=== PATIENT | female | born 1995 | race African-American/Black ===

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

== ENCOUNTER 2017-01-01 23:11 | Emergency (ER) | payer MEDICAID ==
[2017-01-01] MEDS ORDERED: Sodium Chloride 0.9% 1,000 ML IV ONE (23:50)
[2017-01-02 00:15] LABS: CHLORIDE,CL 104 mmol/L (98-110); SODIUM,NA 138 mmol/L (136-146)
[2017-01-02] MEDS ORDERED: Ketorolac 30 MG/ML SDV IVPUSH ONE (00:40)
[2017-01-02] MEDS ORDERED: Simethicone 80 MG Tab.Chew PO ONE (01:25)
--- NOTE | 2017-01-02 01:25 | EDM.PDOC ---
ED HPI GENERAL MEDICAL PROBLEM - General Chief Complaint: Abdominal Pain Stated Complaint: ABDOMINAL PAIN Time Seen by Provider: 01/02/17 01:24 Source of Information: Reports: Patient - History of Present Illness INITIAL COMMENTS - FREE TEXT/NARRATIVE: HISTORY AND PHYSICAL: History of present illness: []Patient presents with left upper quadrant pain since yesterday she rates 4 out of 10 nonradiating she denies any injury or trauma no fever nausea vomiting chills sweats chest pain shortness breath headache dizziness or palpitation denies urinary symptoms last bowel movement was yesterday somewhat on the constipated side Last menstrual period ended yesterday Denies chronic illness or disease Review of systems: As per history of present illness and below otherwise all systems reviewed and negative. Past medical history: As per history of present illness and as reviewed below otherwise noncontributory. Surgical history: As per history of present illness and as reviewed below otherwise noncontributory. Social history: No reported history of drug or alcohol abuse. Family history: As per history of present illness and as reviewed below otherwise noncontributory. General patient elicits no pain behavior she is in absolutely no distress whatsoever Physical exam: HEENT: Atraumatic, normocephalic, pupils reactive, negative for conjunctival pallor or scleral icterus, mucous membranes moist, throat clear, neck supple, nontender, trachea midline. Lungs: Clear to auscultation, breath sounds equal bilaterally, chest nontender. Heart: S1S2, regular, negative for clicks, rubs, or JVD. Abdomen: Soft, nondistended, mild tenderness left upper quadrant no guarding or rebound lower quadrants are negative for tenderness again no guarding or rebound Negative for masses or hepatosplenomegaly. Negative for costovertebral tenderness. Pelvis: Stable nontender. Genitourinary: Deferred. Rectal: Deferred. Extremities: Atraumatic, negative for cords or calf pain. Neurovascular unremarkable. Neuro: Awake, alert, oriented. Cranial nerves II through XII unremarkable. Cerebellum unremarkable. Motor and sensory unremarkable throughout. Exam nonfocal. Diagnostics: []Lab as below CBC CMP UA hCG Flat and upright abdomen Therapeutics: []Gas-X Toradol 30 mg IV Recommend MiraLAX and Gas-X [id number] Impression: []Abdominal pain Stool and nonspecific bowel gas pattern x-ray will follow radiology Definitive disposition and diagnosis as appropriate pending reevaluation and review of above. Left Upper Abdomen Pain Score (Numeric/FACES): 9 - Related Data Allergies Allergy/AdvReac Type Severity Reaction Status Date / Time No Known Allergies Allergy Verified 01/01/17 23:27 Home Meds: Home Meds . [No Known Home Meds] 12/08/16 [History] Past Medical History - Past Health History Medical/Surgical History: Denies Medical/Surgical History HEENT History: Reports: None Cardiovascular History: Reports: None Respiratory History: Reports: None Gastrointestinal History: Reports: None Genitourinary History: Reports: None RHEOLOGIST History: Reports: Neurological History: Reports: None Psychiatric History: Reports: None Dermatologic History: Reports: None - Infectious Disease History Infectious Disease History: Reports: None - Past Surgical History HEENT Surgical History: Reports: None Cardiovascular Surgical History: Reports: None Respiratory Surgical History: Reports: None GI Surgical History: Reports: None Female Surgical History: Reports: Section Social & Family History - Family History Family Medical History: Noncontributory - Tobacco Use Smoking Status *Q: Never Smoker Second Hand Smoke Exposure: No - Caffeine Use Caffeine Use: Reports: None - Recreational Drug Use Recreational Drug Use: No ED ROS GENERAL - Review of Systems Review Of Systems: ROS reveals no pertinent complaints other than HPI. ED EXAM, GENERAL - Physical Exam Exam: See Below Course - Vital Signs Last Recorded V/S: Last Vital Signs Temp 35.8 C 01/01/17 23:24 Pulse 77 01/02/17 00:20 Resp 18 01/02/17 00:20 BP 102/57 L 01/02/17 00:20 Pulse Ox 99 01/02/17 00:20 - Orders/Labs/Meds Orders: Active Orders 24 hr Category Date Time Status Heart Tones [RC] ASDIRECTED Care 01/01/17 23:51 Inactive Abdomen 2V AP Flat Upright [CR] Stat Exams 01/02/17 00:40 Taken Simethicone Med 01/02/17 01:25 Once 160 mg PO ONETIME ONE Labs: Laboratory Tests 01/01/17 01/01/17 01/01/17 Range/Units 23:37 23:52 23:52 WBC 9.60 (4.0-11.0) K/uL RBC 4.53 (4.30-5.90) M/uL Hgb 11.9 L (12.0-16.0) g/dL Hct 37.5 (36.0-46.0) % MCV 82.8 (80.0-98.0) fL MCH 26.3 L (27.0-32.0) pg MCHC 31.7 (31.0-37.0) g/dL RDW Std Deviation 39.3 (28.0-62.0) fl RDW Coeff of Yobani 13 (11.0-15.0) % Plt Count 168 (150-400) K/uL MPV 10.80 (7.40-12.00) fL Neut % (Auto) 50.0 (48.0-80.0) % Lymph % (Auto) 40.7 H (16.0-40.0) % [place] % (Auto) 8.1 (0.0-15.0) % Eos % (Auto) 1.0 (0.0-7.0) % Baso % (Auto) 0.2 (0.0-1.5) % Neut # (Auto) 4.8 (1.4-5.7) K/uL Lymph # (Auto) 3.9 H (0.6-2.4) K/uL [place] # (Auto) 0.8 (0.0-0.8) K/uL Eos # (Auto) 0.1 (0.0-0.7) K/uL Baso # (Auto) 0.0 (0.0-0.1) K/uL Nucleated RBC % 0.0 /100WBC Nucleated RBCs # 0 K/uL Sodium 138 (136-146) mmol/L Potassium 3.8 (3.5-5.1) mmol/L Chloride 104 (98-110) mmol/L Carbon Dioxide 24 (21-31) mmol/L BUN 20 (6.0-23.0) mg/dL Creatinine 0.9 (0.6-1.5) mg/dL Est Cr Clr Drug Dosing 83.17 mL/min Estimated GFR (MDRD) > 60.0 ml/min Glucose 113 H (60-110) mg/dL Calcium 9.6 (8.8-10.8) mg/dL Total Bilirubin 0.1 (0.1-1.5) mg/dL AST 16 (5-40) IU/L ALT 14 (8-54) IU/L Alkaline Phosphatase 98 (40-150) Total Protein 7.5 (6.0-8.0) g/dL Albumin 4.0 (3.5-5.0) g/dL Globulin 3.5 (2.0-3.5) g/dL Albumin/Globulin Ratio 1.1 L (1.3-2.8) Amylase 62 (10-90) U/L Lipase 62 (7-80) U/L HCG, Quant mIU/mL Urine Color YELLOW Urine Appearance CLEAR Urine pH 6.0 (5.0-8.0) Ur Specific [place] 1.025 (1.001-1.035) Urine Protein NEGATIVE (NEGATIVE) mg/dL Urine Glucose (UA) NEGATIVE (NEGATIVE) mg/dL Urine Ketones NEGATIVE (NEGATIVE) mg/dL Urine Occult Blood SMALL H (NEGATIVE) Urine Nitrite NEGATIVE (NEGATIVE) Urine Bilirubin NEGATIVE (NEGATIVE) Urine Urobilinogen 0.2 (<2.0) EU/dL Ur Leukocyte Esterase NEGATIVE (NEGATIVE) Urine RBC 0-1 (0-2/HPF) Urine WBC 0-1 (0-5/HPF) Ur Epithelial Cells FEW (NONE-FEW) Urine Bacteria FEW (NEGATIVE) Blood Type 01/01/17 01/01/17 Range/Units 23:52 23:52 WBC (4.0-11.0) K/uL RBC (4.30-5.90) M/uL Hgb (12.0-16.0) g/dL Hct (36.0-46.0) % MCV (80.0-98.0) fL MCH (27.0-32.0) pg MCHC (31.0-37.0) g/dL RDW Std Deviation (28.0-62.0) fl RDW Coeff of Yobani (11.0-15.0) % Plt Count (150-400) K/uL MPV (7.40-12.00) fL Neut % (Auto) (48.0-80.0) % Lymph % (Auto) (16.0-40.0) % [place] % (Auto) (0.0-15.0) % Eos % (Auto) (0.0-7.0) % Baso % (Auto) (0.0-1.5) % Neut # (Auto) (1.4-5.7) K/uL Lymph # (Auto) (0.6-2.4) K/uL [place] # (Auto) (0.0-0.8) K/uL Eos # (Auto) (0.0-0.7) K/uL Baso # (Auto) (0.0-0.1) K/uL Nucleated RBC % /100WBC Nucleated RBCs # K/uL Sodium (136-146) mmol/L Potassium (3.5-5.1) mmol/L Chloride (98-110) mmol/L Carbon Dioxide (21-31) mmol/L BUN (6.0-23.0) mg/dL Creatinine (0.6-1.5) mg/dL Est Cr Clr Drug Dosing mL/min Estimated GFR (MDRD) ml/min Glucose (60-110) mg/dL Calcium (8.8-10.8) mg/dL Total Bilirubin (0.1-1.5) mg/dL AST (5-40) IU/L ALT (8-54) IU/L Alkaline Phosphatase (40-150) Total Protein (6.0-8.0) g/dL Albumin (3.5-5.0) g/dL Globulin (2.0-3.5) g/dL Albumin/Globulin Ratio (1.3-2.8) Amylase (10-90) U/L Lipase (7-80) U/L HCG, Quant 4.0 mIU/mL Urine Color Urine Appearance Urine pH (5.0-8.0) Ur Specific [place] (1.001-1.035) Urine Protein (NEGATIVE) mg/dL Urine Glucose (UA) (NEGATIVE) mg/dL Urine Ketones (NEGATIVE) mg/dL Urine Occult Blood (NEGATIVE) Urine Nitrite (NEGATIVE) Urine Bilirubin (NEGATIVE) Urine Urobilinogen (<2.0) EU/dL Ur Leukocyte Esterase (NEGATIVE) Urine RBC (0-2/HPF) Urine WBC (0-5/HPF) Ur Epithelial Cells (NONE-FEW) Urine Bacteria (NEGATIVE) Blood Type B POSITIVE Meds: Medications Discontinued Medications Generic Name Dose Route Start Last Admin Trade Name Freq PRN Reason Stop Dose Admin Sodium Chloride 1,000 mls @ 999 mls/hr 01/01/17 23:50 01/02/17 00:19 Normal Saline IV 01/02/17 00:50 999 mls/hr STAT ONE Administration Ketorolac Tromethamine 30 mg 01/02/17 00:40 01/02/17 00:51 Toradol IVPUSH 01/02/17 00:41 30 mg ONETIME ONE Administration Departure - Departure Time of Disposition: Disposition: Home, Self-Care 01 Condition: Good Clinical Impression: Abdominal pain - Discharge Information Referrals: PCP,None [Primary Care Provider] - Forms: ED Department Discharge Additional Instructions: Gas-X every 6 hours as needed MiraLAX daily until stool has cleared may benefit Return if symptoms persist or worsen or new concerning symptoms develop Follow-up with primary care in 2 [address] as needed [facility] - Primary Care [address] [place] [id number] The following information is given to patients seen in the emergency department who are being discharged to home. This information is to outline your options for follow-up care. We provide all patients seen in our emergency department with a follow-up referral. The need for follow-up, as well as the timing and circumstances, are variable depending upon the specifics of your emergency department visit. If you don't have a primary care physician on staff, we will provide you with a referral. We always advise you to contact your personal physician following an emergency department visit to inform them of the circumstance of the visit and for follow-up with them and/or the need for any referrals to a consulting specialist. The emergency department will also refer you to a specialist when appropriate. This referral assures that you have the opportunity for follow-up care with a specialist. All of these measure are taken in an effort to provide you with optimal care, which includes your follow-up. Under all circumstances we always encourage you to contact your private physician who remains a resource for coordinating your care. When calling for follow-up care, please make the office aware that this follow-up is from your recent emergency room visit. If for any reason you are refused follow-up, please contact the [facility] emergency department at and asked to speak to the emergency department charge nurse. - My Orders Last 24 Hours: My Active Orders 01/01/17 23:51 Heart Tones [RC] ASDIRECTED 01/02/17 00:40 Abdomen 2V AP Flat Upright [CR] Stat 01/02/17 01:25 Simethicone 160 mg PO ONETIME ONE - Assessment/Plan Last 24 Hours: My Active Orders 01/01/17 23:51 Heart Tones [RC] ASDIRECTED 01/02/17 00:40 Abdomen 2V AP Flat Upright [CR] Stat 01/02/17 01:25 Simethicone 160 mg PO ONETIME ONE
[2017-01-02 01:42] VITALS: BP 103/63
--- NOTE | 2017-01-02 10:32 | CR ---
EXAM DATE: 01/01/17 PATIENT'S AGE: 21 Patient: ANA NICHOLS Facility: [place], [place] Site . Site : 1995 Study: XRay Abdomen [id number] 1:17:09 AM Ordering Physician: Marielena Sow Final Report: HISTORY: Generalized abdominal pain. FINDINGS: Upright and supine radiograph of the abdomen demonstrates a generous cardiac silhouette. Lung bases are free of infiltrate. There is no free air under diaphragm. No dilated small bowel loops are seen. No small bowel air fluid levels. Stool and gas is seen throughout the colon. No pathologic calcifications are seen. IMPRESSION: 1. Cardiac silhouette is generous. This may be exaggerated by low lung volumes. 2. Stool seen throughout the colon without evidence of bowel obstruction or free air. Dictated by Monisha Hannon MD @ 01/02/2017 2:02:41 AM Dictated by: Monisha Hannon MD @ 01/02/2017 02:02:45 (Electronic Signature) Report Signed by Proxy. [facility]
== END 2017-01-02 01:35 | disposition home or self-care (01) ==
LOC: MW.ED 23:11
DX: R10.12 Left upper quadrant pain (principal)
CPT/HCPCS: 36415; 74020; 80053; 81001; 82150; 83690; 84702; 85025; 86900; 86901; 96361; 96374; 99284; J1885; J7040; 99283